=== PATIENT | female | born 1970 | race Caucasian/White ===

== ENCOUNTER 2017-12-19 19:52 | Observation (INO) ==
[2017-12-19] MEDS ORDERED: 0.9 % Sodium Chloride 1,000 ML IVC ONE ×2 (21:42→22:43)
[2017-12-19 21:55] LABS: Basophils # 0.1 K/mcL (0.0-0.2); Basophils % 0.4 %; Eosinophils # 0.1 K/mcL (0.0-0.6); Eosinophils % 0.5 %; Hematocrit 45.9 % (35.3-44.9); Hemoglobin 14.9 g/dL (11.5-15.4); Immature Granulocytes % 0.8 % (0-4); Lymphocytes % 12.8 %; Mean Corpuscular HGB Conc 32.5 g/dL (31.6-35.5); Mean Corpuscular Hemoglobin 28.8 pg (28.0-33.3); Mean Corpuscular Volume 88.8 fL (83.0-100.0); Mean Platelet Volume 10.9 fL (9.4-12.4); Monocytes # 1.5 K/mcL (0.0-1.3); Monocytes % 9.6 %; Neutrophils # 11.8 K/mcL (1.6-8.9); Platelet Count 339 K/mcL (140-400); Red Blood Count 5.17 M/mcL (3.82-4.97); Red Cell Distribution Width 13.3 % (11.5-14.5); Segmented Neutrophils % 75.9 %
[2017-12-19 22:12] LABS: Bilirubin,Urine Large (Negative); Blood,Urine Trace-intact (Negative); Clarity,Urine Clear (Clear); Color,Urine Yellow (Yellow); Glucose,Urine (UA) Normal (Normal); Ketones,Urine Trace mg/dL (Negative); Leukocyte Esterase,Urine Small (Negative); Nitrite,Urine Negative (Negative); PH,Urine 5.5 pH Units (5.0-8.0); Protein,Urine 30 mg/dL (Neg-Trace); Specific Gravity,Urine 1.015 (1.010-1.025); Urobilinogen,Urine Normal (Normal)
[2017-12-19 22:42] LABS: Calcium 9.8 mg/dL (8.6-10.3); Potassium 3.8 mEq/L (3.5-5.1)
--- NOTE | 2017-12-19 23:12 | Emergency Department Note ---
Disposition Clinical Impression: Acute kidney injury, Near syncope Disposition: Admitted As Inpatient Condition: Good Syncope HPI - General Chief Complaint: ED Dizziness Stated Complaint: Possible Syncope Time Seen by Provider: 12/19/17 21:16 Source: patient Limitations: no limitations Nursing Notes Reviewed: Yes Vital Signs Reviewed: Yes - History of Present Illness HPI Narrative: Patient presents today for evaluation of near syncopal event as well as concern for dehydration. She states this has happened one time in the past and she is dehydrated. She states that she was at work when she was feeling dizzy and lightheaded like she might pass out. Patient states she ate a bunch of food in order to raise her blood sugar. She is not diabetic and has not otherwise had problems with her blood sugar. Patient checked her blood sugar was found to 1: 15. Patient continued to feel lightheaded and "not quite right". Patient was brought into the ER for evaluation and found to have a low blood pressure of 93 systolic. Patient states that she has not had any infectious symptoms including cough or urinary symptoms. Her abdomen is soft and nontender. She states she does have muscle cramping which is sometimes associated with her with hypokalemia. Patient will undergo CT evaluation a chest x-ray, EKG, blood work. - Related Data Allergies Allergy/AdvReac Type Severity Reaction Status Date / Time bupropion [From Wellbutrin] Allergy Dizziness Verified 10/18/15 07:44 simvastatin [From Zocor] Allergy See Verified 10/18/15 07:44 Comments Sulfa (Sulfonamide Allergy See Verified 10/18/15 07:44 Antibiotics) Comments Tetanus Vaccines and Toxoid Allergy See Verified 10/18/15 07:44 [Tetanus Vaccines & Toxoid] Comments Review of Systems: CONSTITUTIONAL: No weight loss, fever, chills, weakness or fatigue. HEENT: Eyes: No visual changes. Ears, Nose, Throat: No hearing loss, difficulty talking or unable to swallow. SKIN: No rash or itching. CARDIOVASCULAR: No chest pain, chest pressure or chest discomfort. No palpitations or edema. RESPIRATORY: No shortness of breath, cough or sputum. GASTROINTESTINAL: No anorexia, nausea, vomiting or diarrhea. No abdominal pain or blood. GENITOURINARY: No burning on urination or hematuria. NEUROLOGICAL: Syncope No headache, dizziness paralysis, ataxia, numbness or tingling in the extremities. No change in bowel or bladder control. MUSCULOSKELETAL: Myalgias Past Medical History - Past Medical History Medical history: Reports: asthma, hypertension Surgical history: Reports: non-contributory Psychiatric history: Reports: anxiety, depression, panic disorder - Social History Smoking Status: Never smoker Smokeless Tobacco Status: No Alcohol use: Reports: occasionally Drug use: Reports: none Physical Exam General appearance: NAD, conversant Eyes: anicteric sclerae, moist conjunctivae; PERRL HENT: Atraumatic; oropharynx clear with moist mucous membranes and no mucosal ulcerations Neck: Normal inspection; Trachea midline; FROM, supple Lungs: CTA, with normal respiratory effort and no intercostal retractions CV: RRR, no MRGs Abdomen: Soft, non-tender; no rebound or gaurding Extremities: No peripheral edema or extremity lymphadenopathy Skin: Normal temperature; no rash, ulcers or lesions Psych: Appropriate mood and affect Neuro: alert and oriented to person, place and time - General Limitations: no limitations General appearance: alert, in no apparent distress Course - Reevaluation(s) Reevaluation #1: Patient found to have acute elevated creatinine. Patient's medication list has been gone through. She does take tinazidine which is an alpha vlad. This may be medication induced as she takes this prior to work. Patient will need further investigation and management. Patient noted to the hospitalist service. Vital Signs Temperature 97.6 F 12/19/17 19:56 Pulse Rate 101 12/19/17 19:56 Respiratory Rate 16 12/19/17 19:56 Blood Pressure 112/72 12/19/17 19:56 O2 Sat by Pulse Oximetry 96 12/19/17 19:56 Temperature 97.7 F 12/20/17 11:37 Pulse Rate 78 12/20/17 11:37 Respiratory Rate 16 12/20/17 11:37 Blood Pressure 132/83 12/20/17 11:37 O2 Sat by Pulse Oximetry 97 12/20/17 11:37 Oxygen Delivery Oxygen Delivery Room Air Syncope - Medical Records Medical records reviewed: Yes I reviewed the patient's medical records. - Lab Data Lab results reviewed: Yes I reviewed the patient's lab results. Result diagrams: 12/19/17 21:16 12/19/17 21:16 Lab Results 12/19/17 12/19/17 12/19/17 Range/Units 21:16 21:16 21:16 WBC 15.6 H (4.3-11.1) K/mcL RBC 5.17 H (3.82-4.97) M/mcL Hgb 14.9 (11.5-15.4) g/dL Hct 45.9 H (35.3-44.9) % MCV 88.8 (83.0-100.0) fL MCH 28.8 (28.0-33.3) pg MCHC 32.5 (31.6-35.5) g/dL RDW 13.3 (11.5-14.5) % Plt Count 339 (140-400) K/mcL MPV 10.9 (9.4-12.4) fL Immature Gran % 0.8 (0-4) % Seg Neutrophils % 75.9 % Lymphocytes % 12.8 % Monocytes % 9.6 % Eosinophils % 0.5 % Basophils % 0.4 % Neutrophils # 11.8 H (1.6-8.9) K/mcL Lymphocytes # 2.0 (0.6-4.6) K/mcL Monocytes # 1.5 H (0.0-1.3) K/mcL Eosinophils # 0.1 (0.0-0.6) K/mcL Basophils # 0.1 (0.0-0.2) K/mcL Sodium 135 L (136-145) mEq/L Potassium 3.8 (3.5-5.1) mEq/L Chloride 99 (98-107) mEq/L Carbon Dioxide 23 (23-29) mEq/L BUN 23 H (6-20) mg/dL Creatinine 2.16 H (0.60-1.20) mg/dL Est GFR ( Amer) 29 L (> 60) Est GFR (Non-Af Amer) 24 L (> 60) BUN/Creatinine Ratio 11 (6-26) Glucose 111 H (70-105) mg/dL POC Glucose (58-89) Est Mean Plasma Glucose mg/dl Hemoglobin A1c ( - 5.6) % Calculated Osmolality 284 (280-300) Calcium 9.8 (8.6-10.3) mg/dL Creatine Kinase 163 (30-223) Units/L Troponin I < 0.03 (< 0.04) ng/mL Urine Color (Yellow) Urine Clarity (Clear) Urine pH (5.0-8.0) pH Units Ur Specific [place] (1.010-1.025) Urine Protein (Neg-Trace) mg/dL Urine Glucose (UA) (Normal) mg/dL Urine Ketones (Negative) mg/dL Urine Blood (Negative) Urine Nitrite (Negative) Urine Bilirubin (Negative) Urine Urobilinogen (Normal) mg/dL Ur Leukocyte Esterase (Negative) Urine Microscopic RBC (0-3) per hpf Urine Microscopic WBC Ur Squamous Epith Cells (None-Few) per lpf Ur Culture Indicated? (NO) 12/19/17 12/19/17 12/19/17 Range/Units 21:16 21:20 21:58 WBC (4.3-11.1) K/mcL RBC (3.82-4.97) M/mcL Hgb (11.5-15.4) g/dL Hct (35.3-44.9) % MCV (83.0-100.0) fL MCH (28.0-33.3) pg MCHC (31.6-35.5) g/dL RDW (11.5-14.5) % Plt Count (140-400) K/mcL MPV (9.4-12.4) fL Immature Gran % (0-4) % Seg Neutrophils % % Lymphocytes % % Monocytes % % Eosinophils % % Basophils % % Neutrophils # (1.6-8.9) K/mcL Lymphocytes # (0.6-4.6) K/mcL Monocytes # (0.0-1.3) K/mcL Eosinophils # (0.0-0.6) K/mcL Basophils # (0.0-0.2) K/mcL Sodium (136-145) mEq/L Potassium (3.5-5.1) mEq/L Chloride (98-107) mEq/L Carbon Dioxide (23-29) mEq/L BUN (6-20) mg/dL Creatinine (0.60-1.20) mg/dL Est GFR ( Amer) (> 60) Est GFR (Non-Af Amer) (> 60) BUN/Creatinine Ratio (6-26) Glucose (70-105) mg/dL POC Glucose 124 H (58-89) Est Mean Plasma Glucose 94 mg/dl Hemoglobin A1c 4.9 ( - 5.6) % Calculated Osmolality (280-300) Calcium (8.6-10.3) mg/dL Creatine Kinase (30-223) Units/L Troponin I (< 0.04) ng/mL Urine Color Yellow (Yellow) Urine Clarity Clear (Clear) Urine pH 5.5 (5.0-8.0) pH Units Ur Specific [place] 1.015 (1.010-1.025) Urine Protein 30 H (Neg-Trace) mg/dL Urine Glucose (UA) Normal (Normal) mg/dL Urine Ketones Trace H (Negative) mg/dL Urine Blood Trace-intact H (Negative) Urine Nitrite Negative (Negative) Urine Bilirubin Large H (Negative) Urine Urobilinogen Normal (Normal) mg/dL Ur Leukocyte Esterase Small H (Negative) Urine Microscopic RBC 0-3 (0-3) per hpf Urine Microscopic WBC WRITER Ur Squamous Epith Cells Few (None-Few) per lpf Ur Culture Indicated? YES A (NO) - Radiology Data Radiology results reviewed: Yes I reviewed the patient's radiology results. - EKG Data EKG attestation: Yes I reviewed and interpreted this EKG. EKG shows normal: sinus rhythm Rate: normal Rhythm: NSR Attestation Statement - Attestation Attestation: I examined this patient and my medical decision-making was reviewed with the Resident Physician. I agree with the documented findings, disposition and treatment plan as described except to the extent set forth below. 47-year-old female presents to the ED because of syncope. She has history of hypertension with no recent change in medications. She also has chronic back pain and has been on steroids as well as require steroid injections in the past. She notes that when she goes to work she works in a fairly hot environment and spends much of her shift feeling lightheaded. This is worsened over the recent days. She has had poor appetite with about 60 pound weight loss in the past year. She denies feeling lightheaded and dizzy when she stands up and this is worse at work. No vomiting or diarrhea. No fevers or chills. No dysuria. Morbidly obese female in no apparent physiologic distress. She is awake alert and talkative. Membranes are dry. Heart rate is rapid with a heart rate ranging from 105-120. Blood pressure is 90/40. Chest is clear to auscultation bilaterally. Cardiac exam is regular, tachycardic without murmurs. Abdomen soft, nondistended and nontender. No CVA tenderness. Extremities warm and dry without asymmetric edema. No calf tenderness. EKG was unremarkable. She was found to have significant change in her renal function and this may be secondary to recurrent episodes of hypotension as well as 1 depletion. Was also noted that she is prescribed tizanidine 4 mg tablets to take as needed for back pain. She indicates that she will take these only immediately before she goes to work. This very well may explain her fatigue and presenting hypotension if she is taking denies any 4 mg of the time, especially if dehydrated. I have explained to her that she should probably stop the tizanidine. She will be admitted for further treatment and evaluation with ongoing hydration due to the acute renal insufficiency.
[2017-12-19 23:15] LABS: RBC,Urine 0-3 per hpf (0-3); Squamous Epithelial Cell,Urine Few per lpf (None-Few)
[2017-12-20] MEDS ORDERED: Naloxone 0.4 MG/ML INJ IVP PRN (07:49)
[2017-12-20] MEDS ORDERED: Ondansetron ODT 4 MG TAB.RAPDIS SL PRN (07:49)
[2017-12-20] MEDS ORDERED: Acetaminophen 325 MG TABLET PO PRN (07:49)
[2017-12-20] MEDS ORDERED: traMADol 50 MG TABLET PO PRN (07:51)
[2017-12-20] MEDS ORDERED: 0.9 % Sodium Chloride 1,000 ML IVC SCH (08:00)
--- NOTE | 2017-12-20 08:02 | Internal Med History&Physical ---
<Zulay Lomeli - Last Filed: 12/20/17 09:24> Date of Encounter: 12/20/17 Time of Encounter: 07:20 Assessment and Plan (1) Near syncope Status: Acute Patient reports near syncopal episode at work yesterday morning. Most likely due to poor po intake, possible UTI. She reports feeling shaky, diaphoretic with "cold sweats", and lightheaded. She states that her implementation project manager was at work with her and began "pouring sugar and flavored creamer down my throat." She denies known history of diabetes. A1c is being drawn. She states that she knows that she does not drink enough fluids daily and presents with SURINDER. Patient also reports increased amount of life stress over the last year, which could contribute to near syncope. Patient's chest x-ray and troponins are negative. Serum creatinine was elevated , GFR is decreased. Serum glucose on arrival to the ED was 111. Urine not completely indicative of UTI, however, it is positive for LE and pt has leukocytosis. Will treat empirically as this could contribute to her symptoms. Urine culture pending. Symptoms have resolved. She reports history of same in April,, again while at work. She was brought to the ED and diagnosed with dehydration per her personal history. I am unable to locate ED records indicating this. Carotid dopplers ordered Echo ordered Urine drug screen ordered Telemetry IVF bolus in ED, continue 0.9NS at 75ml/hour Head CT ordered Continue to monitor labs and vitals (2) Acute kidney injury Status: Acute Pt presents with SURINDER, most likely due to chronically poor po intake. Sr Cr 2.16 , GFR 24. She received 2 liter IVF bolus in the ED, will continue 0.9NS at 75ml hour. Pt also recalled taking Triamterene/HCTZ that is not on her home medication list, will not restart. Lisinopril has been held. Retroperitoneal US ordered Continue to avoid nephrotoxins IVF hydration Consider nephrology consultation after US results Monitor labs. (3) Anxiety and depression Status: Chronic Chronic. Pt reports increased stress over the last year. Continue home medications. Denies SI/HI (4) Asthma Status: Chronic No acute exacerbation. Continue home medications. Qualifiers: Asthma severity: unspecified severity Asthma persistence: unspecified Asthma complication type: unspecified Qualified Code(s): J45.909 - Unspecified asthma, uncomplicated (5) Morbid obesity with BMI of 45.0-49.9, adult Status: Chronic Chronic. Encourage lifestyle modifications. (6) DVT prophylaxis Status: Acute Heparin SQ BID. Pt is ambulatory. Internal Medicine - H&P: HPI Chief complaint: Near syncope Admitted From: Home Plans for Post Hospital Care: Home History of present illness: Ms. Hartley is a 47 year old female with PMH of HTN, asthma, anxiety, depression, hysterectomy. She presented to the ED from work with a near syncopal episode at work. Pt reports that she was shaky, lightheaded, and diaphoretic. She denies chest pain, n/v/d, recent illness causing fluid losses, headache, abdominal pain. No vision changes or urinary complaints. She reports an immense amount of stress in her personal life and admits that she is not always adherent to taking her medications and/or drinking enough fluids. Pt states that within the last year she cared for her ill father who later , she in in the process of getting and is having anxiety about where she is going to live, she has stress at her job, her mother is ill, and her best friend in October. She denies SI/HI or thoughts of harming herself. She has been placed in observation for continued evaluation of renal function and syncopal workup. Time spent with patient is approximately 30 min. Past Med Surg Social Fam HX - Past Medical History Medical history: asthma, hypertension, syncope Psychiatric history: anxiety, depression, panic disorder - Past Surgical History Surgical History: appendectomy, hysterectomy, BIA/BSO - Social History Smoking Status: Never smoker Smokeless Tobacco Status: No Alcohol use: occasionally Drug use: none - Family History Father Hx Family Endocrine Disorder: Yes (Diabetes) Internal Medicine - H&P: Meds Duloxetine HCl [Cymbalta] 90 mg PO DAILY 12/20/17 [History] Fluticasone/Vilanterol [Breo Ellipta 100-25 Mcg INH] 1 puff IH DAILY 12/20/17 [ History] Lisinopril [Zestril] 10 mg PO DAILY 12/20/17 [History] Montelukast [Singulair] 10 mg PO DAILY 12/20/17 [History] Nortriptyline [Pamelor] 50 mg PO HS 12/20/17 [History] Tramadol HCl [Ultram] 50 - 100 mg PO DAILY PRN 12/20/17 [History] Fish Oil/Dha/Epa [Fish Oil 1,200 mg Fish Oil] 1 each PO DAILY #30 capsule [Rx] 3 Allergy/AdvReac Type Severity Reaction Status Date / Time bupropion [From Wellbutrin] Allergy Dizziness Verified 10/18/15 07:44 simvastatin [From Zocor] Allergy See Verified 10/18/15 07:44 Comments Sulfa (Sulfonamide Allergy See Verified 10/18/15 07:44 Antibiotics) Comments Tetanus Vaccines and Toxoid Allergy See Verified 10/18/15 07:44 [Tetanus Vaccines & Toxoid] Comments All Systems PM: A 10-system review of systems was performed and is negative for pertinent findings except as documented above in the HPI. - Constitutional Constitutional: no excessive sweating, no fever(s), no lethargy, no night sweats , no weakness - EENT Eyes: no change in vision, no loss of vision, no other visual disturbances Nose, mouth and throat: no nasal congestion, no nasal discharge, no post-nasal drip, no sinus pain, no sore throat - Cardiovascular Cardiovascular ROS IM: diaphoresis, lightheadedness, no chest pain, no dyspnea, no palpitations, no syncope - Respiratory Respiratory: no cough, no wheezing, no chest congestion - Gastrointestinal Gastrointestinal: no abdominal pain, no diarrhea, no heartburn, no nausea, no vomiting - Genitourinary Genitourinary: no difficulty urinating, no difficulty voiding, no dysuria, no flank pain Menstruation: post hysterectomy - Musculoskeletal Musculoskeletal ROS IM: limited range of motion, numbness, tingling - Neurological Neurological ROS: paresthesias, tingling, no confusion, no frequent falls, no headache(s), no loss of vision - Psychiatric Psychiatric: anxiety, change in appetite, depression, no homicidal ideation, no suicidal ideation - Endocrine Endocrine IM: polydipsia - Constitutional Vitals: Temp Pulse Resp BP Pulse Ox 97.6 F 78 17 131/83 96 12/20/17 07:50 12/20/17 07:50 12/20/17 07:50 12/20/17 07:50 12/20/17 07:50 General appearance: Present: cooperative, A&O X 3, morbidly obese, pleasant, no acute distress, answers questions appropriately - Head Head exam: Present: atraumatic, normal inspection, normocephalic - Eye Eye exam: Present: normal appearance, conjuntiva pink, sclera anicteric - Neck Neck exam general surgery: Present: normal inspection, supple, trachea midline. Absent: lymphadenopathy - Respiratory Respiratory exam: Present: CTAB. Absent: accessory muscle use, chest wall tenderness, decreased breath sounds, rales, respiratory distress, rhonchi, wheezes - Cardiovascular Cardiovascular exam: Present: RRR, +S1, +S2. Absent: diastolic murmur, gallop, irregular rhythm, rubs, systolic murmur - GI/Abdominal GI/Abdominal exam: Present: normal bowel sounds, soft, tenderness. Absent: distended, hepatomegaly - Extremities Exam Extremities exam: Present: normal capillary refill, warm, radial pulses palpable and symmetrical. Absent: calf tenderness, cyanotic, pedal edema, tenderness - Neurological Exam Neurological exam: Present: alert, oriented X3, no focal deficits. Absent: altered, facial droop, speech deficit - Skin Skin exam: Present: dry, intact, normal color, warm. Absent: rash Internal Med - H&P Results - Labs CBC & Chem 7: 12/19/17 21:16 12/19/17 21:16 <Alejandro Porter - Last Filed: 12/21/17 23:13> Date of Encounter: 12/20/17 Internal Medicine - H&P: HPI History of present illness: Ms. Hartley is a 47 year old female All Systems PM: A 10-system review of systems was performed and is negative for pertinent findings except as documented above in the HPI. - Constitutional Vitals: Temp Pulse Resp BP Pulse Ox 97.8 F 65 16 137/87 98 12/21/17 10:50 12/21/17 10:50 12/21/17 10:50 12/21/17 10:50 12/21/17 10:50 Internal Med - H&P Results - Labs CBC & Chem 7: 12/21/17 03:46 12/21/17 03:46 Labs: Short CBC 12/21/17 Range/Units 03:46 WBC 7.4 D (4.3-11.1) K/mcL Hgb 13.1 D (11.5-15.4) g/dL Hct 41.0 (35.3-44.9) % Plt Count 246 (140-400) K/mcL Neutrophils # 4.2 (1.6-8.9) K/mcL BMP 12/21/17 03:46 Sodium 139 Potassium 3.6 Chloride 105 Carbon Dioxide 28 BUN 15 Creatinine 0.88 Glucose 110 H Calcium 8.9 - Impressions ITS Impressions Echocardiogram 12/20/17 07:54 Impressions: LVEF 55-60%. Normal LV wall thickness and function. Borderline dilated LV chamber size. Mild left ventricular diastolic dysfunction. Normal right ventricular structure and function. Unable to estimate RVSP due to lack of TR jet. No significant valvular dysfunction. Left Ventricular Wall Motion: Rest Echo Findings All wall segments showed normal motion. Findings: Study Quality * Technically adequate exam. ECG Findings * Normal sinus rhythm. Left Ventricle * LVEF 55-60%. * Normal LV wall thickness and function. Borderline dilated LV chamber size. * Mild left ventricular diastolic dysfunction. Right Ventricle * Normal right ventricular structure and function. Left Atrium * Moderately dilated left atrium. Right Atrium * Mildly dilated right atrium. Interatrial Septum * Interatrial septum not well evaluated. Aortic Valve * Aortic valve not well visualized. * No aortic regurgitation. * No aortic stenosis. Mitral Valve * Normal mitral valve structure and function. * No mitral regurgitation. * No mitral stenosis. Tricuspid Valve * Normal tricuspid valve structure and function. * No tricuspid regurgitation. * Unable to estimate RVSP due to lack of TR jet. Pulmonic Valve * Pulmonic valve is not well visualized. * No pulmonic regurgitation. Aorta * Normally sized aortic root. Pericardium * The pericardium appears normal. IVC * Normal IVC dimensions and inspiratory collapse. Pulmonary Artery * Pulmonary artery not well visualized. Head CT 12/20/17 07:54 IMPRESSION: Unremarkable noncontrast examination the brain. D/ / Stiven Mccollum MD / Stiven Mccollum MD Interpreting Provider: Stiven Mccollum MD - Attending Attestation I conducted a face to face diagnostic evaluation of this patient and my medical decision-making was reviewed with the Nurse Practitioner. I agree with the documented findings, disposition and treatment plan as described except to the extent set forth below: Patient presented to the hospital for evaluation of near syncope. Creatinine was found to be elevated at 2.16. We will trend troponin. We will place the patient on telemetry. Obtain echocardiogram. Check orthostatics. IV hydration.
[2017-12-20 09:07] LABS: Hemoglobin A1C 4.9 %
[2017-12-20] MEDS: (Fluticasone/Vilanterol [Breo Ellipta 100-25 Mcg Inh] IH SCH (10:24)
[2017-12-20 12:04] LABS: Amphetamine Screen,Urine Negative ng/mL (Cutoff=1000); Barbiturate Screen,Urine Negative ng/mL (Cutoff=200); Benzodiazepines Screen,Urine Negative ng/mL (Cutoff=200); Cannabinoid Screen,Urine Negative ng/mL (Cutoff = 50); Cocaine Screen,Urine Negative ng/mL (Cutoff= 300); Opiate Screen,Urine Negative ng/mL (Cutoff=300); Phencyclidine Screen,Urine Negative ng/mL (Cutoff=25)
[2017-12-20] MEDS ORDERED: Perflutren Lipid Microsphere 1.3 ML in 0.9 % Sodium Chloride 8.7 ML IVP ONE (13:23)
[2017-12-20] MEDS: cefTRIAXone 1,000 MG in Water for inj. (sterile) 20 ML 10 ML IVP SCH (13:34)
[2017-12-20] MEDS: *HR* Heparin 5,000 UNIT/ML VIAL SQ SCH ×2 (13:34→19:18)
[2017-12-20 13:55] LABS: BUN/Creatinine Ratio 17 (6-26); Blood Urea Nitrogen 18 mg/dL (6-20); Calcium 9.2 mg/dL (8.6-10.3); Carbon Dioxide 24 mEq/L (23-29); Chloride 103 mEq/L (98-107); Glucose 97 mg/dL (70-105); Osmolality,Calculated 284 (280-300); Potassium 3.7 mEq/L (3.5-5.1); Sodium 136 mEq/L (136-145); eGFR For African Americans > 60 (> 60); eGFR For Non-African Americans 56 (> 60)
[2017-12-21] MEDS: *HR* Heparin 5,000 UNIT/ML VIAL SQ SCH (04:27)
[2017-12-21 04:48] LABS: Basophils % 0.4 %; Eosinophils # 0.3 K/mcL (0.0-0.6); Eosinophils % 3.7 %; Immature Granulocytes % 0.5 % (0-4); Lymphocytes # 2.1 K/mcL (0.6-4.6); Lymphocytes % 27.9 %; Mean Corpuscular Hemoglobin 28.7 pg (28.0-33.3); Mean Corpuscular Volume 89.7 fL (83.0-100.0); Mean Platelet Volume 11.1 fL (9.4-12.4); Monocytes # 0.8 K/mcL (0.0-1.3); Neutrophils # 4.2 K/mcL (1.6-8.9); Platelet Count 246 K/mcL (140-400); Red Blood Count 4.57 M/mcL (3.82-4.97); Red Cell Distribution Width 13.4 % (11.5-14.5); Segmented Neutrophils % 56.5 %
[2017-12-21 04:55] LABS: Hemoglobin 13.1 g/dL (11.5-15.4)
[2017-12-21 05:13] LABS: BUN/Creatinine Ratio 17 (6-26); Blood Urea Nitrogen 15 mg/dL (6-20); Calcium 8.9 mg/dL (8.6-10.3); Carbon Dioxide 28 mEq/L (23-29); Chloride 105 mEq/L (98-107); Cholesterol 182 mg/dL (< 200); Glucose 110 mg/dL (70-105); HDL Cholesterol 46 mg/dL (40-59); LDL Cholesterol,Calculated 114 mg/dL (0-99); Osmolality,Calculated 289 (280-300); Potassium 3.6 mEq/L (3.5-5.1); Sodium 139 mEq/L (136-145); Triglycerides 112 mg/dL (< 150); eGFR For African Americans > 60 (> 60); eGFR For Non-African Americans > 60 (> 60)
[2017-12-21] MEDS: cefTRIAXone 1,000 MG in Water for inj. (sterile) 20 ML 10 ML IVP SCH (08:18)
--- NOTE | 2017-12-21 10:28 | Discharge Summary ---
Date of Encounter: 12/21/17 Time of Encounter: 10:20 - Discharge Diagnosis (1) Near syncope Priority: Primary Status: Acute Comments: Symptoms have resolved. Carotids completed, non stenotic plaque in the right bifurcation. 40-59% stenosis in the left distal ICA. Echo 55-60% EF, mild LVDD, no significant valvular dysfunction. Most likely due to poor po intake and dehydration. Head CT negative for acute infarct. Urine drug screen negative. Encouraged pt to drink at least 64oz of water daily and monitor sodium and caffeine intake. (2) Acute kidney injury Priority: Secondary Status: Resolved Comments: Resolved. Due to dehydration and poor po intake. Renal function at baseline. Lisinopril was held, can restart at home. Pt had been treated empirically for UTI, urine cx negative, no abx for home. (3) Anxiety and depression Priority: Secondary Status: Chronic Comments: Continue home medications. Referral to [facility] made by primary RN. (4) Asthma Priority: Secondary Status: Chronic Comments: No acute exacerbation. continue home medications. Qualifiers: Asthma severity: unspecified severity Asthma persistence: unspecified Asthma complication type: unspecified Qualified Code(s): J45.909 - Unspecified asthma, uncomplicated (5) Morbid obesity with BMI of 45.0-49.9, adult Priority: Secondary Status: Chronic Comments: Chronic. Lifestyle modifications. (6) DVT prophylaxis Priority: Secondary Status: Acute Comments: Pt ambulatory, Heparin SQ BID - Discharge Medications Home Medications: Duloxetine HCl [Cymbalta] 90 mg PO DAILY 12/20/17 [History] Fluticasone/Vilanterol [Breo Ellipta 100-25 Mcg INH] 1 puff IH DAILY 12/20/17 [ History] Lisinopril [Zestril] 10 mg PO DAILY 12/20/17 [History] Montelukast [Singulair] 10 mg PO DAILY 12/20/17 [History] Nortriptyline [Pamelor] 50 mg PO HS 12/20/17 [History] Tramadol HCl [Ultram] 50 - 100 mg PO DAILY PRN 12/20/17 [History] Allergies/Adverse Reactions: 3 Allergy/AdvReac Type Severity Reaction Status Date / Time bupropion [From Wellbutrin] Allergy Dizziness Verified 10/18/15 07:44 simvastatin [From Zocor] Allergy See Verified 10/18/15 07:44 Comments Sulfa (Sulfonamide Allergy See Verified 10/18/15 07:44 Antibiotics) Comments Tetanus Vaccines and Toxoid Allergy See Verified 10/18/15 07:44 [Tetanus Vaccines & Toxoid] Comments Procedures/tests Complete & Pending: Procedures Performed prior 72 hours Category Date Time Status CT head/brain wo con [CT] Routine Cat Scan 12/20/17 07:54 Completed EV carotid duplex imaging BI Routine Y 12/20/17 07:54 Completed EV echocardiogram Routine Y 12/20/17 07:54 Completed Date of admission: 12/20/17 01:01 Primary care physician: Ruben Pedroza MD Consults: 12/20/17 01:49 Consult to Nutrition [CONS] Routine Comment: Consulting Provider: NUTRITION Reason for Dietary Consult: Diet Education MST Score Consult to Tube Roller [CONS] Routine Reason for SW Consult: Patient uses cane at home and has a cycle of medication noncompliance/forgetfulness. Patient states that she would like to have someone come into the home and to remind her to take her medications and help her remember to eat/drink. Discharging clinician: Zulay Lomeli Anticipated date of discharge: 12/21/17 - Patient Status Disposition: Home, Self-Care Condition: Good Functional capacity at discharge: independent ambulation Overall status at discharge: patient is back to baseline - Discharge Instructions Follow Up With: Ruben Pedroza MD [Primary Care Provider] - Additional Instructions: Please make sure that you follow up with your PCP in the next 7-10 days for a recheck. Take your medications as directed. WE have made a referral to the [facility], they will call you with an appointment. Return to the ER as needed for any other problems or concerns, or if your symptoms return or worsen. Make sure that you are drinking at least 64 oz of water daily, more if you are sweating more. REturn to your normal activities as tolerated. - Diet and Activity Activity: increase activity as tolerated Diet: advance to your usual diet Hospital course: Ms. Hartley is a 47 year old female - Time Spent with Patient Total time spent providing and/or coordinating discharge services: - Constitutional Vitals: Temp Pulse Resp BP Pulse Ox 97.8 F 68 18 126/82 96 12/21/17 07:35 12/21/17 07:35 12/21/17 07:35 12/21/17 07:35 12/21/17 07:35 General appearance: Present: cooperative, A&O X 3, morbidly obese, pleasant, no acute distress, answers questions appropriately - Head Head exam: Present: atraumatic, normal inspection, normocephalic - Eye Eye exam: Present: normal appearance, conjuntiva pink, sclera anicteric - Neck Neck exam general surgery: Present: supple, trachea midline. Absent: lymphadenopathy, tenderness - Respiratory Respiratory exam: Present: CTAB. Absent: accessory muscle use, decreased breath sounds, rales, rhonchi, wheezes - Cardiovascular Cardiovascular exam: Present: RRR, +S1, +S2. Absent: diastolic murmur, gallop, rubs, systolic murmur - GI/Abdominal GI/Abdominal exam: Present: normal bowel sounds, soft, no peritoneal signs. Absent: distended, hepatomegaly - Extremities Exam Extremities exam: Present: normal capillary refill, normal inspection, warm, radial pulses palpable and symmetrical. Absent: calf tenderness, cyanotic, pedal edema, tenderness - Neurological Exam Neurological exam: Present: alert, oriented X3, no focal deficits. Absent: facial droop, speech deficit - Skin Skin exam: Present: dry, intact, normal color, warm
[2017-12-21 10:51] VITALS: BP 137/87
[2017-12-21] MEDS: (Fluticasone/Vilanterol [Breo Ellipta 100-25 Mcg Inh] IH SCH (11:17)
[2017-12-21] MEDS ORDERED: FLUARIX QUAD 2017-18 36MOS UP/PF 0.5 ML SYRINGE IM ONE (11:50)
--- NOTE | 2017-12-23 07:52 | Electrocardiograph Report ---
[address] [place], [place] [address] Test Date: 2017-12-19 Pat Name: Jaclyn Hartley Department: 104 Room: 3B Gender: F [employer]: BERNABE : [id number] Requested By: Heber Velasquez Order Number: [id number] Reading MD: Guido Durán MD Measurements Intervals [place] Rate: 77 P: 26 ID: [id number] QRS: 11 QRSD: 104 T: 30 QT: 388 QTc: 420 Interpretive Statements SINUS RHYTHM Electronically Signed On 12-23-2017 5:49:23 EST by Guido Durán MD
== END 2017-12-21 12:10 | disposition home or self-care (01) ==
LOC: 2SOUTHHOLD 19:52 → EMEROO 19:52 → 2SOUTHHOLD 12-20 01:33 → 3BNU 12-20 03:57
PROVIDERS: ADMIT Internal Medicine; ATTEND Hospitalist